=== PATIENT | female | born 1930 | race Caucasian/White ===

== ENCOUNTER 2017-09-14 18:55 | Emergency (ER) | payer MEDICARE, BC ==
[~2017-09-14] VITALS: Ht 152.4 cm; Wt 72.6 kg
[~2017-09-14 18:55] MED LIST: ACET325 PO; AMIT10 PO; AMLO10 PO; ASCO500 PO; ASPI325 PO; ASPI81CH PO; ATOR20 PO; CALCAVITD PO; CARV25 PO; CLON.1 PO; CLOP75 PO; DIOVAN PO; DULO60 PO; FERROUS SULFATE PO; FISH1000 PO; FURO20 PO; FURO40 PO; GABA300 PO; GEMF600 PO; GLUCHON PO; HYDACE5 PO; HYDACE5325 PO; HYDCHL12.5 PO; LEVSOD100 PO; LORA.5 PO; LORA1 PO; MAGOXI400 PO; MECL25 PO; MULVIT PO; MULVITMIND PO; MULVITMINF PO; NAMBUMETONE PO; NAPR500 PO; NEBI10 PO; NITR.6SL SL; Nitrostat0.4 MG SL; OMEP10ER PO; OXYB5 PO; PANT40 PO; POTA10T PO; POTCHL10ER PO; PROM25 PO; Prilosec Otc20 MG PO; QUIN300 PO; QUININE SULFAT324 MG PO; RXPROM25S PR; SPIR25 PO; SYNTHROID25 MCG PO; TOLT2 PO; VALS80 PO; VALSARTAN-HCTZ1 EAC1 PO; VALSARTAN-HCTZ1 EAC3 PO
== END 2017-09-14 21:02 | disposition home or self-care (01) ==
LOC: ER 18:55
DX: M19.271 Secondary osteoarthritis, right ankle and foot (principal); I25.10 Atherosclerotic heart disease of native coronary artery without angina pectoris; I10 Essential (primary) hypertension; E78.5 Hyperlipidemia, unspecified; E03.9 Hypothyroidism, unspecified; K21.9 Gastro-esophageal reflux disease without esophagitis; F32.9 Major depressive disorder, single episode, unspecified; Z88.5 Allergy status to narcotic agent; Z88.8 Allergy status to other drugs, medicaments and biological substances; Z79.899 Other long term (current) drug therapy; Z79.82 Long term (current) use of aspirin
CPT/HCPCS: 73610; 99283

== ENCOUNTER 2017-11-14 16:55 | Emergency (ER) | payer MEDICARE, BC ==
[~2017-11-14] VITALS: Ht 154.9 cm; Wt 70.3 kg
== END 2017-11-14 19:24 | disposition home or self-care (01) ==
LOC: ER 16:55
DX: S41.112A Laceration without foreign body of left upper arm, initial encounter (principal); W18.30XA Fall on same level, unspecified, initial encounter; Z88.5 Allergy status to narcotic agent; Z88.8 Allergy status to other drugs, medicaments and biological substances; Z79.899 Other long term (current) drug therapy; Z79.82 Long term (current) use of aspirin; I10 Essential (primary) hypertension; E78.5 Hyperlipidemia, unspecified; E03.9 Hypothyroidism, unspecified; K21.9 Gastro-esophageal reflux disease without esophagitis; F32.9 Major depressive disorder, single episode, unspecified
CPT/HCPCS: 12002; 90471; 90714; 99283

== ENCOUNTER 2018-01-03 18:18 | Emergency (ER) | payer MEDICARE, BC ==
[~2018-01-03] VITALS: Ht 154.9 cm; Wt 71.7 kg
[2018-01-03 19:05] LABS: Calcium, Ionized (POC) 1.17 mmol/L (1.10-1.46); Chloride (POC) 106 mmol/L (98-108); Creatinine (POC) 1.5 mg/dL (0.6-1.0); Glucose (ISTAT POC) 122 mg/dL (70-99); Hemoglobin (POC) 12.6 g/dL (12.0-16.0); Potassium (POC) 5.9 mmol/L (3.5-5.5); Sodium (POC) 136 mmol/L (135-148); Total CO2 (POC) 22 mmol/L (21-32)
[2018-01-03 19:35] LABS: Albumin, Blood 3.9 g/dL (3.4-5.0); Albumin/Globulin Ratio 1.2 (0.8-1.8); Bilirubin, Total 0.2 mg/dL (0.1-1.0); Bun/Creatinine Ratio 29.1 (12.0-20.0); Calcium, Blood 8.9 mg/dL (8.5-10.1); Creatinine, Blood 1.34 mg/dL (0.40-1.00); Globulin, Blood 3.2 g/dL (2.2-4.0); Potassium, Blood 5.7 mmol/L (3.5-5.5); Total Protein, Blood 7.1 g/dL (6.4-8.2)
== END 2018-01-03 20:00 | disposition home or self-care (01) ==
LOC: ER 18:18
PROVIDERS: Emergency Medicine; Internal Medicine
DX: E87.5 Hyperkalemia (principal); I13.0 Hypertensive heart and chronic kidney disease with heart failure and stage 1 through stage 4 chronic kidney disease, or unspecified chronic kidney disease; I50.22 Chronic systolic (congestive) heart failure; N18.3 Chronic kidney disease, stage 3 (moderate); Z88.8 Allergy status to other drugs, medicaments and biological substances; Z88.5 Allergy status to narcotic agent; Z79.899 Other long term (current) drug therapy; Z79.82 Long term (current) use of aspirin
CPT/HCPCS: 36415; 80047; 80053; 85014; 93005; 93010; 99283-25

== ENCOUNTER 2018-01-11 08:20 | Day surgery (SDC) | payer MEDICARE, BC ==
[~2018-01-11] VITALS: Ht 152.4 cm; Wt 70.8 kg
== END 2018-01-11 09:30 | disposition home or self-care (01) ==
LOC: ORSCSDS 08:20
DX: G56.01 Carpal tunnel syndrome, right upper limb (principal); Z53.9 Procedure and treatment not carried out, unspecified reason
CPT/HCPCS: J0690; J2250; J3010; J7120

== ENCOUNTER 2018-02-01 10:52 | Day surgery (SDC) | payer MEDICARE, BC ==
[~2018-02-01] VITALS: Ht 152.4 cm; Wt 73.4 kg
[2018-02-01] MEDS ORDERED: Spironolactone25 MG PO (11:31)
[2018-02-01] MEDS ORDERED: OXYB5 PO (11:33)
[2018-02-01] MEDS ORDERED: GABA300 PO (11:33)
[2018-02-01] MEDS ORDERED: Furosemide20 MG PO (11:33)
== END 2018-02-01 13:30 | disposition home or self-care (01) ==
LOC: ORSCSDS 10:52
PROVIDERS: Orthopaedic Surgery
PROC: 01N50ZZ Release Median Nerve, Open Approach (ICD-10-PCS; principal; 2018-02-01 12:00)
DX: G56.01 Carpal tunnel syndrome, right upper limb (principal); I10 Essential (primary) hypertension; K21.9 Gastro-esophageal reflux disease without esophagitis; G62.9 Polyneuropathy, unspecified; I25.10 Atherosclerotic heart disease of native coronary artery without angina pectoris; I25.2 Old myocardial infarction; Z79.82 Long term (current) use of aspirin; Z79.899 Other long term (current) drug therapy
CPT/HCPCS: J0690; J3010; J7120

== ENCOUNTER → 2019-02-10 | Outpatient (CLI) | payer MEDICARE, BC ==
[~2019-02-10] MED LIST changes: +Furosemide20 MG PO; +Spironolactone25 MG PO
== END ==
LOC: LAB 16:36 → LAB SHORT 16:36
DX: L08.0 Pyoderma (principal)
CPT/HCPCS: 87070; 87205

== ENCOUNTER → 2020-11-17 | Outpatient (CLI) | payer MEDICARE, BC | LOC: LAB SHORT 12:00 → LAB 12:00 | DX: R30.9 Painful micturition, unspecified (principal) | CPT/HCPCS: 87086 ==